=== PATIENT | male | born 1990 | race African-American/Black ===

== ENCOUNTER 2017-06-17 17:35 | Emergency (ER) | payer SELFPAY ==
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
[2017-06-17] MEDS ORDERED: Ketorolac Tromethamine 30 MG/ML VIAL ONE (19:36)
== END 2017-06-17 20:13 | disposition home or self-care (01) ==
LOC: ERS 17:35
DX: S62.304A Unspecified fracture of fourth metacarpal bone, right hand, initial encounter for closed fracture (principal); Z87.891 Personal history of nicotine dependence; W20.8XXA Other cause of strike by thrown, projected or falling object, initial encounter
CPT/HCPCS: 96372; J1885

== ENCOUNTER 2017-11-15 07:55 | Emergency (ER) | payer SELFPAY | END 2017-11-15 08:40 | disposition home or self-care (01) | LOC: ERS 07:55 | DX: S39.012A Strain of muscle, fascia and tendon of lower back, initial encounter (principal); X50.0XXA Overexertion from strenuous movement or load, initial encounter; Y99.0 Civilian activity done for income or pay | CPT/HCPCS: 99283 ==

== ENCOUNTER 2018-02-21 12:03 | Emergency (ER) | payer OTHER, SELFPAY ==
[2018-02-21] MEDS ORDERED: Lidocaine 1% 20 ML MDV ONE (13:10)
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
[2018-02-21] MEDS ORDERED: HYDROcodone/Acetaminophen 5/325 mg Tablet ONE (14:11)
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
== END 2018-02-21 14:15 | disposition home or self-care (01) ==
LOC: SCSER 12:03
DX: S02.40CA Maxillary fracture, right side, initial encounter for closed fracture (principal); S02.2XXA Fracture of nasal bones, initial encounter for closed fracture; W22.8XXA Striking against or struck by other objects, initial encounter
CPT/HCPCS: 12013; 70450; 70486; J2001